=== PATIENT | female | born 1945 | race Caucasian/White ===

== ENCOUNTER 2016-12-05 12:50 | Emergency (ER) | payer MEDICARE, BC ==
[2016-12-05 13:28] VITALS: BP 124/76
--- NOTE | 2016-12-05 14:33 | RAD ---
INDICATION: Cough for one month without improvement. Bronchitis. COMPARISON: None. TECHNIQUE: Dual energy PA and routine lateral views of the chest were obtained. REPORT: Elevated lung volumes with increased AP thoracic diameter and partial flattening of the diaphragms. Mild prominence of the interstitial markings. No focal pulmonary lesion, alveolar consolidation, pleural effusion, pneumothorax. Small retrocardiac hiatal hernia. Negative for cardiomegaly. Unremarkable central pulmonary vasculature and mediastinal contours. Mild thoracic degenerative spondylosis. IMPRESSION: Stigmata of probable chronic obstructive pulmonary disease. No evidence for pneumonia or presence of a focal pulmonary lesion.
--- NOTE | 2016-12-05 14:49 | UC ---
Darron Floyd Adam, [facility] on 12/05/16 at 1407 . Respiratory Complaint HPI - HPI Summary HPI Summary: In Room Note: Pt is a 71 year old female presenting with persistent respiratory sx after being treated for a sinus infection. Several weeks ago she began having a cough which was induced by recumbent position and which was producing green sputum. She was not having any CP or fever. When the pt went to the doctor she was diagnosed with sinus infection and put on a 10 day course of Augmentin. She inadvertently skipped a few doses but she took her last dose 3 days ago. She did not have any diarrhea during the course of the medication. Despite finishing the Augmentin 3 days ago, the pt continues to have symptoms. She currently c/o sore throat, cough, chest pain from coughing, low energy levels, and diaphoresis. She denies any N/V/D. No significant PMHx. Surgical hx tonsillectomy of right hip replacement. Left hip replacement scheduled to occur in a couple months. Note: Vital signs stable, afebrile, pulse ox 97. Discomfort with cough and swallowing. Non-drinker. Former smoker. Hepatitis B, 1980. Anxiety. Visit history non-contributory to current complaint. Patient is not on anti- hypertensive medication. Slightly elevated systolic pressure noted. Nurse's Note: THE MEDICINE BUT NEVER FELT COMPLETELY BETTER. BY Wednesday SHE FELT ILL AGAIN. SHE IS CONCERNED THAT SHE HAS WALKING PNEUMONIA, WHICH SHE HAS HAD IN THE PAST. SHE IS THINKING THAT SHE MIGHT NEED AN XRAY TO MAKE SURE SHE DOESN'T HAVE THIS. HER THROAT IS SORE WELL. 4/10 PAIN ALL THE TIME. 8/10 WHEN SHE COUGHS OR SWALLOWS. - History of Current Complaint Chief Complaint: UCRespiratory Stated Complaint: SINUS ISSUE Time Seen by Provider: 12/05/16 13:32 Hx Obtained From: Patient Onset/Duration: Gradual Onset, Lasting Weeks, Still Present Timing: Constant Severity Initially: Moderate Severity Currently: Moderate Character: Sputum Description: - Green Aggravating Factors: Nothing Alleviating Factors: Nothing - Allergies/Home Medications Allergies/Adverse Reactions: Allergies Allergy/AdvReac Type Severity Reaction Status Date / Time atropine and inderral AdvReac Severe See Comment Uncoded 12/05/16 13:19 PMH/Surg Hx/FS Hx/Imm Hx Endocrine History Of: Denies: Diabetes, Thyroid Disease Cardiovascular History Of: Denies: Cardiac Disorders, Hypertension Respiratory History Of: Reports: Bronchitis Denies: COPD, Asthma GI/ History Of: Denies: Ulcer - Surgical History Surgical History: Yes Surgery Procedure, Year, and Place: hip replacement. D&C. steel plate placed for right ankle fracture. had a cystoscopy. neuroma left foot. T&A - Family History Known Family History: Positive: Other - Breast cancer (aunts) - Social History Alcohol Use: None Substance Use Type: None Smoking Status (MU): Former Smoker Type: Cigarettes Amount Used/How Often: QUIT 20 YEARS AGO When Did the Patient Quit Smoking/Using Tobacco: quit 20 years ago - Immunization History Most Recent Influenza Vaccination: NO Most Recent Pneumonia Vaccination: APR 2016 Review of Systems Constitutional: Fatigue, Other - Diaphoresis ENT: Sore Throat Respiratory: Cough Cardiovascular: Chest Pain - With cough All Other Systems Reviewed And Are Negative: Yes Physical Exam Triage Information Reviewed: Yes Vital Signs: Initial Vital Signs Temp 97.3 F 12/05/16 13:20 Pulse 93 12/05/16 13:20 Resp 16 12/05/16 13:20 BP 124/76 12/05/16 13:20 Pulse Ox 97 12/05/16 13:20 - Additional Comments Appearance: well-appearing, no pain distress, well-nourished Eyes: Conjunctiva clear ENT: Hearing grossly normal, pharynx normal, TMs normal, (-) muffled/hoarse voice Neck: Supple, no lymphadenopathy Resp: Chest non-tender, lungs clear, normal breath sounds, no respiratory distress Cardio: RRR, No murmur Abd: nontender, no organomegaly, soft Bowel: Present Musc: Strength intact, MORAN Neuro: Alert Psych: Age appropriate behavior Skin: (-) rashes UC Diagnostic Evaluation - Laboratory O2 Sat by Pulse Oximetry: 97 Diagnostic Studies Comment: Chest X-Ray - IMPRESSION: Stigmata of probable chronic obstructive pulmonary disease. No evidence for pneumonia or presence of a focal pulmonary lesion. Group A Strep Rapid - Negative Respiratory Course/Dx - Course Course Of Treatment: Medications have been included in the original chart and reviewed. Patient is Urgent/Emergent. BP elevated due to current condition w/o HTN in PMH. As noted on X-Ray, pt is a former smoker, has flattened diaphragms consistent with COPD. We discussed the probability that she has a viral upper respiratory illness, now resolving, and that the 10 day course of Augmentin that she took should cover various other infections. - Differential Dx/Diagnosis Provider Diagnoses: Resolving upper respiratory infection/bronchitis Discharge - Discharge Plan Condition: Stable Disposition: HOME Patient Education Materials: Upper Respiratory Infection (ED), Acute Bronchitis (ED) Referrals: Lonny Brantley DO [Primary Care Provider] - Additional Instructions: Thank you for helping us improve patient care by filling out the My Point Survey. WE DISCUSSED: You have a resolving upper respiratory infection/bronchitis. Below are some home treatments. The Augmentin will treat pneumonia or a bronchitis if it is not viral. COUGH, CONGESTION of CHEST, SINUSES OR EARS: The most important goal is to liquefy all the phlegm and get it out of your head and chest. Any illness causing cough, congestion, sore throat or sinus discomfort can be helped by doing the following: STAND UNDER SHOWER STREAM TO LOOSEN SECRETIONS. STAY AWAY FROM ANY SMOKE OR IRRITANTS. WHAT ELSE CAN HELP RELIEVE YOUR SYMPTOMS: GENERAL TYPES OF MEDICINE THAT MAY HELP DECONGESTANTS: helps relieve stuffiness and clears sinuses. Pseudoephedrine ( Sudafed or generic) is effective but you need to ask the pharmacist for it because it may be kept behind the counter. ANTIHISTAMINES: are NOT helpful in many colds and flus because they can worsen sore throat, dry eyes and mouth and cause drowsiness. Examples are diphenhydramine, doxylamine and chlorpheniramine. They can help dry you out if you are having profuse, clear drainage from the nose. EXPECTORANTS: helps thin mucous in the nose and chest, making it easier to clear the fluid out. Expectorants are in most combination cough/cold remedies and should be taken with plenty of water. Guaifenesin is the most common expectorant and it comes in pill or liquid form. Mucinex is an extended release form of guaifenesin. COUGH SUPPRESANT: reduces the body's cough reflex. Dextromethorphan is in over the counter products, but sometimes narcotics such as codeine or hydrocodone are used to suppress cough. SPECIFIC MEDICATIONS: The most important goal is to liquefy all the phlegm and get it out of your head and chest: The following medicines (in prescription form or you can buy them without prescription) may help: To help with cough: DEXTROMETHORPHAN (Vicks, Robitussin, Nyquil and other brands) To help break up phlegm: GUAIFENESIN (Mucinex, Robitussin, other brands) To help clear congestion: PSEUDOEPHEDRINE (Sudafed, Dimetapp, other brands) TRY TO CLEAR NOSE: AFRIN NASAL SPRAY: 2-3 SPRAYS PER NOSTRIL, TWICE A DAY FOR TWO DAYS ONLY. USEFUL WAYS TO FEEL BETTER WITHOUT MEDICATIONS: STAND UNDER SHOWER STREAM TO LOOSEN SECRETIONS. USE A VAPORIZOR. STAY AWAY FROM ANY SMOKE OR IRRITANTS. USE SALINE NASAL SPRAY TO KEEP FLOW OF MUCOUS FROM NOSTRILS AND SINUSES. CONSIDER USING NETI POT TO HELP WITH ALLERGIES AND CONGESTION IN THE NOSE. USE THIS THREE TIMES A WEEK. YOU CAN GET THIS AT [facility] IN [place] OR VARIOUS DRUGSTORES. DRINK LOTS OF WARM FLUIDS USEFUL HOME REMEDIES: WARM WATER GARGLES, WITH TSP OF SALT PER 8 OUNCES OF WATER, GARGLE FOR A FEW SECONDS AND SPIT OUT; GARGLE AND SPIT OUT; EVERY THREE HOURS. AND/OR: WARM WATER OR TEA, HONEY AND LEMON; 2-3 CUPS A DAY. FOR SORE THROAT: KEEP THROAT MOIST WITH LOZENGES; TEA AND HONEY. USE WARM WATER GARGLES 3-4 TIMES A DAY. FOLLOW UP: RE-CHECK IN 1O DAYS, NEEDED, IF YOU ARE NOT IMPROVING. RETURN HERE OR SEE YOUR PHYSICIAN. RE-CHECK SOONER IF INCREASED PAIN OR TEMPERATURE. The documentation as recorded by the Darron angel Adam accurately reflects the service I personally performed and the decisions made by me, Chandler Garcia MD.
== END 2016-12-05 15:01 | disposition home or self-care (01) ==
LOC: UCEAST 12:50
DX: J06.9 Acute upper respiratory infection, unspecified (principal); J40 Bronchitis, not specified as acute or chronic; Z87.09 Personal history of other diseases of the respiratory system; Z87.891 Personal history of nicotine dependence
CPT/HCPCS: 71020; 87651; 99211; G0463

== ENCOUNTER 2017-02-18 09:00 | Inpatient (IN) | payer MEDICARE, BC ==
--- NOTE | 2017-02-12 19:48 | HP ---
HISTORY AND PHYSICAL: DATE OF ADMISSION/SURGERY: 02/18/17 DATE OF OFFICE VISIT: 02/12/17 SURGEON: Meryl Tracey MD PROCEDURE: Left total hip arthroplasty. CHIEF COMPLAINT: Left hip pain. HISTORY OF PRESENT ILLNESS: Ms. Garcia is a 71-year-old female with complaints of left hip pain secondary to advanced osteoarthritis. She has failed conservative management and has elected to pro ceed with left total hip arthroplasty, which is scheduled for 02/18/17. PAST MEDICAL HISTORY: COPD, herpes, and anxiety. PAST SURGICAL HISTORY: Right total hip arthroplasty, right ankle fusion, neuroma removal, D and C, T and A, and cystoscopy. MEDICATIONS: 1. ProAir HFA. 2. Paxil 60 mg a day. 3. Xanax 0.25 mg as needed. ALLERGIES: To ATROPINE and INDERAL. FAMILY HISTORY: Heart disease, stomach cancer, diabetes, asthma. SOCIAL HISTORY: She is a 71-year-old female. She lives alone. She does not smoke or use drugs or alcohol. REVIEW OF SYSTEMS: A complete 14-point review of systems was reviewed with the patient and was all negative or noncontributory. PHYSICAL EXAMINATION GENERAL: She is well developed, well nourished, in no acute distress. VITAL SIGNS: She stands 5 feet 6 inches tall, weighs 250 pounds. Her blood pressure 129/77, her he art rate 74. HEENT: Normocephalic and atraumatic. NECK: Supple. No palpable lymph nodes. LUNGS: Clear to auscultation bilaterally. CARDIO: Regular rate and rhythm. Strong S1 and S2. ABDOMEN: Soft, nontender, and nondistended. MUSCULOSKELETAL: Left lower extremity, the skin is intact. There are no open wounds or abrasions. She has limited internal and external rotation of the left hip. She walks with an antalgic-type ga it favoring her left leg. Her lower extremity muscle group strengths are intact at 5/5. She has 2+ dorsalis pedis pulses and intact sensation. ASSESSMENT AND PLAN: Ms. Garcia is a 71-year-old female with complaints of left hip pain second vanessa to advanced osteoarthritis. She has failed conservative management and has elected to proceed w ith left total hip arthroplasty, which is scheduled for 02/18/[address] Alexy discusse d the risks and benefits of the surgery and all of her questions were answered. Coumadin, Colace, a nd Percocet were sent to her pharmacy today for postoperative pain control, DVT prophylaxis. She wi ll see Dr. Tracey back in 2 weeks after the surgery. PAR[facility] G[place]IL[place] [id number]/[facility] #: [id number]
[~2017-02-18 09:00] MED LIST: Buffered Lidocaine 0.9% SYRIN* 5 ML/SYR SYRINGE INTRADERM ONE; Famotidine IV* 10 MG/ML 2 ML (20 mg) IV ONE; Morphine INJ* 10 MG/ML 1 ML SYRINGE IV PRN; PROCHLORPERAZINE INJ 5 MG/ML 2 ML VIAL IV PRN; fentaNYL* 50 MCG/ML 2 ML VIAL (100 MCG VIAL) IV PRN; oxyCODONE/Acetamin 5/325 MG* TAB PO PRN
[2017-02-18] MEDS ORDERED: ceFAZolin 2 GM PREMIX(*) 2 GM/50 ML BAG IVPB ONE (10:57)
[2017-02-18] MEDS ORDERED: Buffered Lidocaine 0.9% SYRIN* 5 ML/SYR SYRINGE ONE (10:57)
[2017-02-18] MEDS ORDERED: Famotidine IV* 10 MG/ML 2 ML (20 mg) ONE (10:57)
[2017-02-18] MEDS ORDERED: Morphine PF AMP (0.5MG/ML)* 5 MG/10 ML AMP ONE (11:12)
[2017-02-18] MEDS ORDERED: KETAMINE HCL* 50 MG/ML 10 ML VIAL ONE (11:12)
[2017-02-18] MEDS ORDERED: Midazolam* 1 MG/ML 5 ML VIAL (5 MG) ONE (11:12)
[2017-02-18] MEDS ORDERED: fentaNYL* 50 MCG/ML 2 ML VIAL (100 MCG VIAL) ONE ×2 (11:12→13:38)
[2017-02-18] MEDS ORDERED: Atracurium* 10 MG/ML 10 ML VIAL ONE (12:32)
[2017-02-18] MEDS ORDERED: Bupivacaine 0.5% SDV PF* 30 ML VIAL ONE (12:47)
[2017-02-18] MEDS ORDERED: Morphine INJ* 10 MG/ML 1 ML SYRINGE ONE (13:37)
[2017-02-18] MEDS ORDERED: Labetalol IV* 5 MG/ML 20 ML VIAL ONE (14:11)
[2017-02-18] MEDS ORDERED: Ondansetron INJ* 2 MG/ML VIAL ONE (14:11)
[2017-02-18] MEDS ORDERED: Dexamethasone IV* 4 MG/ML 1 ML (4 MG) ONE (14:11)
[2017-02-18] MEDS ORDERED: Propofol* 10 MG/ML 20 ML BTL IV PUSH ONE ×2 (14:11→16:04)
[2017-02-18] MEDS ORDERED: Lidocaine 2% PF * 5 ML VIAL ONE (14:11)
[2017-02-18] MEDS ORDERED: PROCHLORPERAZINE INJ 5 MG/ML 2 ML VIAL ONE (14:11)
[2017-02-18] MEDS ORDERED: hydrALAZINE IV* 20 MG/ML VIAL ONE (14:12)
--- NOTE | 2017-02-18 15:32 | RAD ---
Indication: Left hip replacement Single AP view the pelvis demonstrates left hip reamer in place. Left acetabular cup is in place. IMPRESSION: Intraoperative control films for left hip replacement.
[2017-02-18] MEDS ORDERED: Glycopyrrolate IV* 0.2 MG/ML 1 ML VIAL ONE (15:44)
[2017-02-18] MEDS ORDERED: Neostigmine Methylsulfate* 2 MG/2 ML SYRINGE ONE (15:44)
[2017-02-18] MEDS ORDERED: Polyethylene Glycol 3350* 17 GM PACKET PO PRN (16:22)
[2017-02-18] MEDS ORDERED: Ondansetron INJ* 2 MG/ML VIAL IV PRN (16:22)
[2017-02-18] MEDS ORDERED: oxyCODONE TAB* 5 MG TAB PO PRN (16:22)
[2017-02-18] MEDS ORDERED: Temazepam CAP* 15 MG PO PRN (16:22)
[2017-02-18] MEDS ORDERED: diPHENhydraMINE IV* 50 MG/ML 1 ml VIAL (BENADRYL) IV PRN (16:22)
[2017-02-18] MEDS ORDERED: Magnesium Hydroxide LIQ* 30 ML UDC PO PRN (16:22)
[2017-02-18] MEDS ORDERED: Morphine INJ* 2 MG/ML 1 ML SYRINGE IV PRN (16:22)
[2017-02-18] MEDS ORDERED: Acetaminophen TAB* 325 MG PO PRN (16:22)
[2017-02-18] MEDS ORDERED: Bisacodyl SUPP* 10 MG SUPP PR PRN (16:22)
[2017-02-18] MEDS ORDERED: oxyCODONE/Acetamin 5/325 MG* TAB PO PRN (16:22)
[2017-02-18] MEDS ORDERED: Calcium Carbonate CHEW TAB* 500 MG (TUMS) PO PRN (16:31)
[2017-02-18] MEDS ORDERED: ALPRAZolam TAB* 0.25 MG PO PRN (16:31)
[2017-02-18] MEDS ORDERED: ALBUTEROL SULFATE 90 MCG INH PRN ×2 (16:31→21:32)
[2017-02-18] MEDS ORDERED: Warfarin TAB(*) 6 MG PO ONE ×2 (17:00→20:00)
--- NOTE | 2017-02-18 17:11 | RAD ---
INDICATION: Postop left total hip arthroplasty COMPARISON: Preoperative radiograph February 12, 2017 TECHNIQUE: 3 views of the left hip were obtained. FINDINGS: There is been interval placement of a left hip prosthesis in anatomic alignment. There is no evidence of fracture or loosening. The right hip prosthesis remains anatomically aligned in the AP projection. IMPRESSION: Anatomically aligned left hip prosthesis.
[2017-02-18] MEDS: Docusate CAP* 100 MG PO SCH (19:30)
[2017-02-18] MEDS: ceFAZolin VIAL(*) 1 GM in NS 0.9% 50 ML* 50 ML IVPB SCH (21:20)
[2017-02-19] MEDS: ceFAZolin VIAL(*) 1 GM in NS 0.9% 50 ML* 50 ML IVPB SCH ×2 (05:39→12:24)
[2017-02-19 06:01] LABS: Hematocrit 32 % (35-47); Hemoglobin 10.5 g/dl (12.0-16.0)
[2017-02-19 06:15] LABS: BUN/Creatinine Ratio 20.3 (8-20); Calcium 8.7 mg/dL (8.6-10.3); EGFR Non-African American 101.1 (>60); Potassium 4.1 mmol/L (3.5-5.0)
--- NOTE | 2017-02-19 07:25 | PN ---
Progress Note - Progress Note Date of Service: 02/19/17 SOAP: Subjective: Pt. is alert, pain well controlled. Objective: LLE - dressing c/d/i. thigh soft, distally +df/pf, full sens lt , 2+dp pulse. Vital Signs: Temp Pulse Resp BP Pulse Ox 98.6 F 94 16 117/51 99 02/19/17 03:44 02/19/17 03:44 02/19/17 07:16 02/19/17 03:44 02/19/17 07:16 Laboratory Results - last 24 hr 02/19/17 02/19/17 02/19/17 05:39 05:39 05:40 Hgb 10.5 L Hct 32 L INR (Anticoag Therapy) 1.07 Sodium 137 Potassium 4.1 Chloride 106 Carbon Dioxide 27 Anion Gap 4 BUN 12 Creatinine 0.59 Est GFR ( Amer) 130.0 Est GFR (Non-Af Amer) 101.1 BUN/Creatinine Ratio 20.3 H Glucose 122 H Calcium 8.7 Assessment: 71 yo F pod 1 s/p LTHA Plan: wbat with post hip precautions pt/ot 10 mg coumadin tonight with lovenox dose today xrays satisfactory plan d/c to home tomorrow with vns
[2017-02-19] MEDS: oxyCODONE/Acetamin 5/325 MG* TAB PO PRN ×3 (08:34→16:53)
[2017-02-19] MEDS: PARoxetine HCL TAB* 40 MG PO SCH (08:34)
[2017-02-19] MEDS: Docusate CAP* 100 MG PO SCH ×2 (08:34→21:12)
[2017-02-19] MEDS: Vitamin THERAPEUTIC TAB PO SCH (08:34)
[2017-02-19] MEDS: Enoxaparin(*) 40 MG/0.4 ML SYR SUBCUT SCH (08:35)
--- NOTE | 2017-02-19 12:36 | OP ---
OPERATIVE NOTE: DATE OF OPERATION: 02/18/17 DATE OF : 49 ATTENDING SURGEON: Meryl Tracey MD [facility] MAGISTRATE: PARISH Ariza Cristin did help throughout the procedure with preparation of the leg, wound retraction, wilfredo pulation of the hip, and wound closure. ANESTHESIOLOGIST: Dr. Jeronimo. ANESTHESIA: General. PRE-OP DIAGNOSIS: Severe end-stage degenerative osteoarthritis of the left hip joint. POST-OP DIAGNOSIS: Severe end-stage degenerative osteoarthritis of the left hip joint. OPERATIVE PROCEDURE: Left total hip arthroplasty. COMPLICATIONS: None. ESTIMATED BLOOD LOSS: 400 cc. SPECIMENS: Femoral head and acetabular reaming, sent to Pathology. HARDWARE USED: This is uncemented Bloomspot total hip hardware. For the cup, a Trident hemispherical acetabular shell 52E with one 20-mm screw. For the insert, Trident X3 10-degree polyethylene inser t 36C. For the stem, an Accolade TMZF, size 3 with a 127-degree neck and for the head, a Biolox del ta ceramic V40 femoral head 36 +0. BRIEF HISTORY/INDICATION: Ms. Garcia is a 71-year-old female with years of increasingly severe l eft hip pain. She failed conservative treatment with antiinflammatories, pain medication, ambulator y assistive devices, physical therapy, and weight loss attempt. Radiographs confirmed [id number] arthritis. She elected to undergo left total hip arthroplasty due to continued pain and decreased qu ality of life. Informed consent was obtained from the patient. She understands the risks of the pr ocedure included but are not limited to bleeding, infection, damage to nearby structures, continued pain, need for further surgery, intraoperative fracture, nerve palsy, hardware failure or loosening, dislocation, leg length discrepancy, stroke, heart attack, blood clot, and . She wished to pr oceed. INTRAOPERATIVE FINDINGS: Intraoperatively, the patient was noted to be morbidly obese with at least 10 cm of subcutaneous fat which did make the procedure more difficult for exposure in longer operat jose time. She had complete loss of cartilage along the femoral head and acetabulum. Some anterior acetabular osteophyte was noted. DESCRIPTION OF PROCEDURE: Ms. Garcia was identified in the preanesthesia unit. Her left lower ex tremity was marked as the correct operative side. Informed consent was signed and placed in the marily rt. The patient was taken to the operating room and placed under general anesthesia. A Kwong claudine ter was placed. The patient was placed in the right lateral decubitus position on the peg board. A ll bony prominences were well padded. Left lower extremity was prepped and draped in the usual ster ile fashion. Preop time-out was made to correctly identify the patient's side and site. Appropriat e perioperative antibiotics were given within 1 hour of incision. A 15-cm posterior hip incision was made with a #10 blade. Dissection was carried through the subcut aneous fat, which was at least 10 cm in width, continued with electrocautery. New #10 blade was use d to make incision in the lateral fascia in line with the skin incision. A deep Charnley retractor was placed and the posterior aspect of the hip joint was visualized. The Piriformis and conjoined t endons were identified. These were elevated off the posterolateral femur using electrocautery and t agged with two #5 Ethibonds. Electrocautery was then used to make a standard posterolateral capsula r flap and this was also tagged with two #5 Ethibonds. The hip was carefully dislocated. Lesser tr ochanter to the center of the femoral head measured 50 mm. Oscillating saw was used to make the harley ropriate femoral neck cut. The femoral head was sent to Pathology. The femur was carefully retracted anteriorly. After appropriate placement of retractor, the acetabu lum was easily visualized. A Long-handled knife was used to sharply remove any remaining labrum fro m the acetabular rim. The acetabulum was sequentially reamed up to a size 51. A good bleeding bone bed was obtained. 51 trial had good fit. Final implant chosen was a Trident 52E acetabular multip le hole shell. This was impacted into the acetabulum without difficulty. One 20-mm screw was place d in the superior posterior quadrant for extra stability. The Trident X3 10-degree polyethylene hermila er 36C was chosen. This was impacted into the acetabulum without difficulty. Stability of the alig nment was checked and rechecked and noted to be stable. Attention was next turned to the preparation of the femur. A canal finder was used to enter the pro ximal femur. The proximal femur was sequentially broached up to a size 3. Size 3 broach had excell ent stability and appropriate anteversion. A 127- degree neck trial and a 36 +0 head trial was chos en. Lesser troch to center of the femoral head measured 51 mm. The hip was reduced and taken throu gh a range of motion. The hip was stable in all positions. There was good soft tissue tension and appropriate leg length. The hip was carefully dislocated. All trials were carefully removed. Raya l implant chosen was an Accolade TMZF, size 3 with a 127- degree neck. This was impacted into the f emoral canal without difficulty. There was good stability and appropriate anteversion. Biolox delt a ceramic V40 femoral head 36 +0 was chosen as the final implant. This was impacted onto the femora l neck. The hip was reduced and taken through a range of motion. The hip was stable in all positions. The hip was copiously irrigated with sterile saline. Previously tagged capsule and tendons were reappro ximated to the posterolateral femur through 2 trochanteric drill holes. The lateral fascial layer w as closed using interrupted #1 Vicryls. The rest of the incision was closed in a layered fashion us ing 0 and 2- 0 Vicryls. Skin was closed using running 3-0 Monocryl and Dermabond. Sterile Adaptic, 4x4's, and paper tape were used to cover the incision. The patient's anesthesia was reversed witho ut difficulty. She was taken to the PACU in stable condition. Intended weightbearing will be weigh tbearing as tolerated with posterior hip precautions. Intended DVT prophylaxis will be Coumadin chanel devi. [id number]/[facility] #: [id number]
[2017-02-19] MEDS ORDERED: Warfarin TAB(*) 10 MG PO ONE (17:00)
[2017-02-20] MEDS: oxyCODONE/Acetamin 5/325 MG* TAB PO PRN ×4 (03:32→19:25)
[2017-02-20 07:24] LABS: Hematocrit 30 % (35-47); Hemoglobin 9.9 g/dl (12.0-16.0)
[2017-02-20] MEDS: Docusate CAP* 100 MG PO SCH ×2 (09:09→20:17)
[2017-02-20] MEDS: Vitamin THERAPEUTIC TAB PO SCH (09:09)
[2017-02-20] MEDS: Enoxaparin(*) 40 MG/0.4 ML SYR SUBCUT SCH (09:11)
[2017-02-20] MEDS: PARoxetine HCL TAB* 40 MG PO SCH (09:11)
--- NOTE | 2017-02-20 09:44 | PN ---
Progress Note - Progress Note Date of Service: 02/20/17 SOAP: Subjective: Pt is doing well. Pain is controlled with medication. Denies CP/SOB, F/C, lightheadedness or calf pain. Objective: 71 y/o WDWN F, A&O x3 LLE- inc c/d/i, dressing changed, +DF/PF ankle, calf soft nt, NVI Vital Signs Temp Pulse Resp BP Pulse Ox 98.6 F 100 16 118/57 92 02/20/17 03:57 02/20/17 03:57 02/20/17 09:09 02/20/17 03:57 02/20/17 03:57 Laboratory Results - last 24 hr 02/20/17 02/20/17 07:15 07:15 Hgb 9.9 L Hct 30 L INR (Anticoag Therapy) 2.12 H Assessment: POD 2 S/P left NOAH Plan: WBAT LLE- PT/OT cont pain mgmt hold coumadin tonight DC lovenox DC to home today vs tomorrow
[2017-02-21] MEDS: oxyCODONE/Acetamin 5/325 MG* TAB PO PRN ×3 (01:22→14:38)
[2017-02-21 08:03] LABS: Hematocrit 29 % (35-47); Hemoglobin 9.5 g/dl (12.0-16.0)
[2017-02-21] MEDS: Docusate CAP* 100 MG PO SCH (09:37)
[2017-02-21] MEDS: Vitamin THERAPEUTIC TAB PO SCH (09:37)
[2017-02-21] MEDS: PARoxetine HCL TAB* 40 MG PO SCH (09:42)
--- NOTE | 2017-02-21 10:33 | PN ---
Progress Note - Progress Note Date of Service: 02/21/17 SOAP: Subjective: Pt is doing well. Her pain is controlled. Doing well with PT. Had BM yesterday. Denies F/C, CP/SOB or calf pain. Objective: 71 y/o F NAD, A&O x3, WDWN LLE- inc c/d/i, no sign of infection, dressing changed, +DF/PF ankle, calf soft NT, +2 DP pulse, sensation intact Vital Signs Temp Pulse Resp BP Pulse Ox 99.6 F 81 18 97/52 100 02/21/17 07:46 02/21/17 07:46 02/21/17 09:38 02/21/17 07:46 02/21/17 07:46 Laboratory Results - last 24 hr 02/21/17 02/21/17 07:41 07:41 Hgb 9.5 L Hct 29 L INR (Anticoag Therapy) 2.04 H Assessment: POD 3 Left NOAH Plan: DC to home with VNS today WBAT LLE- cont PT Cont coumadin, percocet, colace F/U Dr. Tracey 10-14 days post op
[2017-02-21 16:14] VITALS: BP 91/67
--- NOTE | 2017-02-22 04:05 | DS ---
DISCHARGE SUMMARY: DATE OF ADMISSION: 02/18/17 DATE OF DISCHARGE: 02/21/17 PROVIDER: Meryl Tracey MD * (DICTATED BY PARISH NUNEZ) ADMITTING DIAGNOSIS: Status post left total hip arthroplasty for treatment of severe left hip osteoarthritis. SECONDARY DIAGNOSES: 1. Chronic obstructive pulmonary disease. 2. Herpes. 3. Anxiety. CONSULTATIONS: Physical Therapy and Occupational Therapy. HISTORY OF PRESENT ILLNESS: Ms. Garcia is a 71-year-old female who presents to the clinic with left hip pain due to severe osteoarthritis. She failed conservative management and therefore elected to proceed with a left total hip arthroplasty on 02/18/[address] Tracey. HOSPITAL COURSE: Ms. Garcia was admitted to [facility] on . She underwent a left total hip arthroplasty. Postoperatively, she recovered on the short stay surgical unit. On postop day 1, her Kwong was removed, she was able to urinate on her own. She advanced to a regular diet without difficulty and her pain was controlled with oral Percocet. She was restarted on her home medications. Her labs and vital signs remain stable, she was able to weight bear as tolerated on her left lower extremity. She advanced appropriately with physical therapy and occupational therapy. DVT prophylaxis was managed with Lovenox and Coumadin until she reached a therapeutic INR. Her INR on 02/19/17 was 1.07, INR on 02/20/17 was 2.12, INR on 02/21/17 was 2.04. The patient received 6 mg of Coumadin on 02/18/17 and 10 mg on 02/19/17. By postop day 3, she was orthopedically and medically stable for discharge to home with VNS services. PHYSICAL EXAMINATION: General: A 71-year-old well-developed, well-nourished female, in no acute distress. Alert and oriented x3, appropriate mood and affect. Left lower extremity incision is clean, dry, and intact. No signs of infection. Her dressing was changed. Positive plantar flexion and dorsiflexion at the ankle. Calves are soft and nontender. Neurovascularly intact. DISCHARGE CONDITION: Stable. DISCHARGE MEDICATIONS: Home medications to continue on discharge to include: 1. Paxil 40 mg tablets, 60 mg by mouth in the morning. 2. Xanax 0.125 mg p.o. every 3 hours as needed. 3. Aspirin 325 mg by mouth once a day. 4. Calcium carbonate chews, 500 mg p.o. as needed. 5. Tylenol 325 mg, 650 mg by mouth as needed. 6. Albuterol sulfate 90 mcg inhalation as needed. New medications on discharge to include: 1. Colace 100 mg by mouth 2 to 3 times a day for constipation. 2. Coumadin 2 mg tabs at 5 o'clock every night, 1 to 4 tabs as directed by the physician. 3. Percocet 5/325, 1 to 2 tabs every 4 to 6 hours as needed for pain. DISCHARGE INSTRUCTIONS: The patient is weightbearing as tolerated on the left lower extremity. She will continue physical therapy at home. It is okay for her to shower 3 days after surgery. No swimming, bathing or submerging the wound. Use gentle soap, to pat dry, cover with gauze and tape. She should call the Ortho office with increased drainage, redness, increased pain or fever greater than 101.5. She should go to the ER with chest pain or shortness of breath. She should eat a regular diet with increased fluids and fiber to prevent constipation. She should continue to use stool softeners and call if she has no bowel movement within 48 hours. She should continue her posterior hip precautions. She should not cross her legs or bend greater than 90 degrees. She should continue physical therapy and occupational therapy exercises at home. VNS will do wound check. VNS will do Wednesday and INR blood draw. She should continue Coumadin for 1 month for DVT prophylaxis, Percocet for pain, Colace for constipation. She should not take aspirin, ibuprofen, and Naproxen while on Coumadin. She will hold her Coumadin on and redraw on 02/22/17, and she will be on antibiotics prior to any dental work in the future. She will follow up with Dr. Tracey within 10 to 14 days postop, she may call for an appointment. PARISH NUNEZ [id number]/[facility] #: [id number] [facility] CENTERKely
== END 2017-02-21 18:08 | disposition home health service (06) | DRG 470 ==
LOC: AA 10:42 → SSU 16:22
PROVIDERS: ADMIT Orthopaedic Surgery Adult Reconstructive Orthopaedic Surgery; ATTEND Orthopaedic Surgery Adult Reconstructive Orthopaedic Surgery
PROC: 0SRB04A Replacement of Left Hip Joint with Ceramic on Polyethylene Synthetic Substitute, Uncemented, Open Approach (ICD-10-PCS; principal; 2017-02-18 13:15)
DX: M16.12 Unilateral primary osteoarthritis, left hip (principal); Z68.41 Body mass index [BMI] 40.0-44.9, adult; J44.9 Chronic obstructive pulmonary disease, unspecified; F41.9 Anxiety disorder, unspecified; Z96.641 Presence of right artificial hip joint; E66.01 Morbid (severe) obesity due to excess calories; M25.752 Osteophyte, left hip; B00.9 Herpesviral infection, unspecified; Z79.82 Long term (current) use of aspirin; Z98.1 Arthrodesis status; Z88.8 Allergy status to other drugs, medicaments and biological substances; Z82.49 Family history of ischemic heart disease and other diseases of the circulatory system; Z83.3 Family history of diabetes mellitus; Z80.0 Family history of malignant neoplasm of digestive organs; Z82.5 Family history of asthma and other chronic lower respiratory diseases; Z87.891 Personal history of nicotine dependence; Z79.01 Long term (current) use of anticoagulants
CPT/HCPCS: 36415; 72170; 80048; 85014; 85018; 85610; A9270-GY; C1713; C1776; J0360; J0690; J0780; J1100; J1650; J2250; J2270; J2405; J2704; J3010

== ENCOUNTER 2017-10-10 15:51 | Emergency (ER) | payer MEDICARE, BC ==
[2017-10-10 16:05] VITALS: BP 130/88
--- NOTE | 2017-10-10 16:21 | UC ---
Respiratory Complaint HPI - HPI Summary HPI Summary: PT REPORTS SHE HAD PRESUMPTIVE FLU ABOUT A MONTH AGO. STATES THE COUGH HAS PERSISTED. HAS OCCASIONAL GREEN PHLEGM. NASAL CONGESTION FOR ABOUT A WEEK. DENIES FEVER, ST, EAR PAIN, N/V/D. FEELS A BIT SOB WHEN SHE BENDS OVER FORWARD BUT NO PROBLEMS WITH ADLs. STATES SHE DOES FEELS SHE IS IMPROVING SLOWLY BUT IS CONCERNED THAT SHE IS STILL COUGHING. IS ALSO CONCERNED ABOUT PNA. - History of Current Complaint Chief Complaint: UCRespiratory Stated Complaint: FLU-LIKE SYMPTOMS Time Seen by Provider: 10/10/17 16:12 Hx Obtained From: Patient Onset/Duration: Gradual Onset, Lasting Weeks, Still Present Timing: Constant Severity Initially: Moderate Severity Currently: Mild Pain Intensity: 0 Pain Scale Used: 0-10 Numeric Character: Cough: Productive Aggravating Factors: Nothing Alleviating Factors: Nothing Associated Signs And Symptoms: Positive: Nasal Congestion. Negative: Fever, Chills, Pleuritic Chest Pain, Wheezing, URI - Allergies/Home Medications Allergies/Adverse Reactions: Allergies Allergy/AdvReac Type Severity Reaction Status Date / Time propranolol [From Inderal LA] Allergy Anxiety Verified 10/10/17 16:07 atropine Allergy Anxiety Uncoded 10/10/17 16:06 PMH/Surg Hx/FS Hx/Imm Hx Respiratory History: COPD - Surgical History Surgical History: Yes Surgery Procedure, Year, and Place: hip replacement. D&C. steel plate placed for right ankle fracture. had a cystoscopy. neuroma left foot. T&A - Family History Known Family History: Positive: Other - Breast cancer (aunts) Negative: Hypertension - Social History Alcohol Use: None Alcohol Amount: 1 drink 1-2 x a year Substance Use Type: None Smoking Status (MU): Former Smoker Type: Cigarettes Amount Used/How Often: QUIT 20 YEARS AGO When Did the Patient Quit Smoking/Using Tobacco: quit 20 years ago - Immunization History Most Recent Influenza Vaccination: NO Most Recent Pneumonia Vaccination: APR 2016 Review of Systems Constitutional: Negative ENT: Nasal Discharge Respiratory: Cough Cardiovascular: Negative Gastrointestinal: Negative All Other Systems Reviewed And Are Negative: Yes Physical Exam Triage Information Reviewed: Yes Appearance: Well-Appearing, No Pain Distress, Well-Nourished Vital Signs: Initial Vital Signs Temp 98.2 F 10/10/17 16:02 Pulse 89 10/10/17 16:02 Resp 18 10/10/17 16:02 BP 130/88 10/10/17 16:02 Pulse Ox 97 10/10/17 16:02 Vital Signs Reviewed: Yes Eyes: Positive: Conjunctiva Clear ENT: Positive: Hearing grossly normal, Pharynx normal, TMs normal Neck: Positive: Supple, Nontender, No Lymphadenopathy Respiratory Exam: Normal Cardiovascular Exam: Normal Abdomen Description: Positive: Soft Musculoskeletal: Positive: No Edema Neurological: Positive: Alert Psychological: Positive: Age Appropriate Behavior Skin: Negative: rashes UC Diagnostic Evaluation - Laboratory O2 Sat by Pulse Oximetry: 97 - Radiology Xray Interpretation: No Acute Changes - CXR Radiology Interpretation Completed By: Radiologist Respiratory Course/Dx - Differential Dx/Diagnosis Provider Diagnoses: BRONCHITIS Discharge - Discharge Plan Condition: Stable Disposition: HOME Patient Education Materials: Acute Bronchitis (ED) Referrals: Lonny Brantley DO [Primary Care Provider] - If Needed Additional Instructions: XRAY TODAY UNREMARKABLE. YOU LIKELY HAVE A VIRAL BRONCHITIS WHICH CAN RESULT IN A COUGH THAT LAST FOR WEEKS. YOUR SYMPTOMS SHOULD RESOLVE ON THEIR OWN WITH TIME. REST, HYDRATE, OTC MEDS NEEDED. SEEK FOLLOW-UP IF YOU DO NOT CONTINUE TO IMPROVE OR IF YOUR SYMPTOMS WORSEN.
--- NOTE | 2017-10-10 16:49 | RAD ---
INDICATION: Cough COMPARISON: December 05, 2016 TECHNIQUE: PA and lateral dual-energy views were obtained. FINDINGS: Bones/Soft Tissues: There are no acute bony findings. Cardiomediastinal: The cardiomediastinal silhouette is normal. Lungs: There are no infiltrates. Pleura: There are no pleural effusions. Other: There is a small moderate-sized hilar hernia, unchanged IMPRESSION: NO ACTIVE DISEASE.
== END 2017-10-10 17:30 | disposition home or self-care (01) ==
LOC: UCEAST 15:51
DX: J44.9 Chronic obstructive pulmonary disease, unspecified (principal); Z96.649 Presence of unspecified artificial hip joint; Z87.891 Personal history of nicotine dependence
CPT/HCPCS: 71046; 99211; G0463

== ENCOUNTER 2021-04-23 18:31 | Inpatient (IN) ==
[2021-04-23 21:46] LABS: ABS Basophils 0.1 10^3/ul (0-0.2); ABS Eosinophils 0.1 10^3/ul (0-0.6); ABS Monocytes 0.6 10^3/ul (0-0.8); ALT 9 U/L (7-52); AST 13 U/L (13-39); Albumin 3.8 g/dL (3.2-5.2); Albumin/Globulin Ratio 1.4 (1-3); Alkaline Phosphatase 77 U/L (35-149); Anion Gap 7 mmol/L (2-11); Blood Urea Nitrogen 18 mg/dL (6-24); CO2 Carbon Dioxide 23 mmol/L (22-32); Calcium 9.5 mg/dL (8.6-10.3); Chloride 108 mmol/L (101-111); EGFR African American 106.2 (>60); EGFR Non-African American 87.8 (>60); Eosinophil % 1.9 %; Globulin 2.7 g/dL (2-4); Glucose 86 mg/dL (70-100); Hematocrit 19 % (35-47); Hemoglobin 5.4 g/dL (12.0-16.0); Lymphocyte % 28.5 %; Mean Corpuscular HGB Conc 29 g/dL (31-36); Mean Corpuscular Hemoglobin 17 pg (27-31); Mean Corpuscular Volume 58 fL (80-97); Mean Platelet Volume 8.6 fL (7.4-10.4); Nucleated Red Blood Cells % 0.1; Platelet Count 297 10^3/uL (150-450); Potassium 3.7 mmol/L (3.5-5.0); Red Blood Count 3.22 10^6 /uL (3.70-4.87); Red Cell Distribution Width 20 % (10-15); Sodium 138 mmol/L (135-145); Total Protein 6.5 g/dL (6.4-8.9); White Blood Count 6.9 10^3/uL (3.5-10.8)
[2021-04-23 21:47] LABS: % Iron Saturation 4 % (15-55); Iron < 20 ug/dL (50-212); Total Iron Binding Capacity 515 mcg/dL (250-450); Transferrin 368 mg/dL (203-362); Unsaturated Iron Binding < 500 ug/dL
[2021-04-23 21:58] LABS: Activated Partial Thrombo Time 28.4 seconds (26.0-38.0); INR 1.08 (0.86-1.15)
[2021-04-23 22:07] LABS: Ferritin 2.7 ng/mL (11-307)
[2021-04-23 22:11] LABS: Folate 10.48 ng/mL (5.90-24.80)
[2021-04-23 22:32] LABS: Immature Retic Fraction 0.55; LDH 162 U/L (140-271); RBC Retic Count 3.26 10^6/uL (3.70-4.87)
[2021-04-23 22:51] LABS: Hematocrit for Retic CNT 19 % (35-47)
[2021-04-23] MEDS ORDERED: CMC:Ketoconazole 2 % CREAM (NF) 30 GM TUBE TOPICAL PRN (23:08)
[2021-04-24 00:08] LABS: Rapid COVID-19 Molecular Undetected (Undetected)
[2021-04-24 06:23] LABS: ABS Basophils 0.1 10^3/ul (0-0.2); ABS Eosinophils 0.1 10^3/ul (0-0.6); ABS Lymphocytes 1.4 10^3/ul (1.0-4.8); ABS Monocytes 0.7 10^3/ul (0-0.8); ABS Neutrophils 3.4 10^3/ul (1.5-7.7); Hematocrit 22 % (35-47); Hemoglobin 6.7 g/dL (12.0-16.0); Lymphocyte % 25.1 %; Mean Corpuscular HGB Conc 31 g/dL (31-36); Mean Corpuscular Hemoglobin 19 pg (27-31); Mean Corpuscular Volume 62 fL (80-97); Mean Platelet Volume 8.4 fL (7.4-10.4); Nucleated Red Blood Cells % 0.2; Platelet Count 261 10^3/uL (150-450); Red Blood Count 3.51 10^6 /uL (3.70-4.87); Red Cell Distribution Width 24 % (10-15); White Blood Count 5.7 10^3/uL (3.5-10.8)
[2021-04-24 06:30] LABS: EGFR African American 116.3 (>60); EGFR Non-African American 96.1 (>60); Potassium 3.6 mmol/L (3.5-5.0)
[2021-04-24] MEDS ORDERED: Perflutren Lipid Microsphere 3 ML VIAL ONE (08:12)
[2021-04-24 08:57] LABS: Hematocrit 28 % (35-47); Hemoglobin 8.2 g/dL (12.0-16.0)
[2021-04-24] MEDS ORDERED: Polyethylene Glycol 3350 17 GM PACKET PO PRN (10:18)
[2021-04-24] MEDS ORDERED: Senna TAB 8.6 mg TAB PO PRN (10:18)
[2021-04-24] MEDS: Iron Sucrose 200 MG in NS 0.9% 100 ml BAG 100 ML IVPB SCH (11:03)
[2021-04-24 14:29] LABS: Hematocrit 24 % (35-47); Hemoglobin 7.3 g/dL (12.0-16.0)
[2021-04-25 06:17] LABS: ABS Basophils 0.1 10^3/ul (0-0.2); ABS Eosinophils 0.2 10^3/ul (0-0.6); ABS Lymphocytes 1.5 10^3/ul (1.0-4.8); ABS Monocytes 0.7 10^3/ul (0-0.8); ABS Neutrophils 3.5 10^3/ul (1.5-7.7); Eosinophil % 2.6 %; Hematocrit 25 % (35-47); Hemoglobin 7.4 g/dL (12.0-16.0); Lymphocyte % 25.1 %; Mean Corpuscular HGB Conc 30 g/dL (31-36); Mean Corpuscular Hemoglobin 19 pg (27-31); Mean Corpuscular Volume 64 fL (80-97); Mean Platelet Volume 8.4 fL (7.4-10.4); Nucleated Red Blood Cells % 0.2; Platelet Count 278 10^3/uL (150-450); Red Blood Count 3.91 10^6 /uL (3.70-4.87); Red Cell Distribution Width 26 % (10-15); White Blood Count 5.8 10^3/uL (3.5-10.8)
[2021-04-25 06:28] LABS: Albumin 3.8 g/dL (3.2-5.2); Albumin/Globulin Ratio 1.5 (1-3); Calcium 9.1 mg/dL (8.6-10.3); EGFR African American 106.2 (>60); EGFR Non-African American 87.8 (>60); Globulin 2.6 g/dL (2-4); Potassium 3.9 mmol/L (3.5-5.0); Total Bilirubin 0.5 mg/dL (0.2-1.0); Total Protein 6.4 g/dL (6.4-8.9)
[2021-04-25 06:38] LABS: Carcinoembryonic Antigen 0.6 ng/mL (0.1-5.0)
[2021-04-25] MEDS: Iron Sucrose 200 MG in NS 0.9% 100 ml BAG 100 ML IVPB SCH (10:26)
[2021-04-25 12:13] VITALS: BP 105/55
== END 2021-04-25 15:35 | disposition home or self-care (01) | DRG 812 ==
LOC: ED 18:31 → MED 18:31 → SUATTDRO 21:46 → OBSVTOIN 21:46 → MED 04-24 01:15
PROVIDERS: ADMIT Internal Medicine; ATTEND Internal Medicine